=== PATIENT | male | born 1950 | race Caucasian/White ===

== ENCOUNTER 2016-11-04 19:16 | Inpatient (IN) ==
[2016-11-04] MEDS ORDERED: *HR* Morphine 2 MG/ML SYRINGE IVP ONE (19:23)
[2016-11-04] MEDS ORDERED: 0.9 % Sodium Chloride 1,000 ML IVC ONE (19:23)
[2016-11-04] MEDS ORDERED: Famotidine 20 MG/2 ML VIAL IVP ONE (19:23)
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
[2016-11-04] MEDS ORDERED: Naloxone 0.4 MG/ML INJ IVP PRN (21:13)
[2016-11-04] MEDS: 0.9 % Sodium Chloride 1,000 ML IVC SCH (22:11)
[2016-11-04] MEDS: Ondansetron 4 MG/2 ML VIAL IVP PRN (22:31)
[2016-11-04] MEDS: Chloraseptic Spray 177 ML BOTTLE MM PRN (22:32)
[2016-11-04] MEDS: *HR* Morphine 2 MG/ML SYRINGE IVP PRN (22:32)
[2016-11-05 03:39] LABS: Basophils % 0.2 %; Eosinophils # 0.1 K/mcL (0.0-0.6); Eosinophils % 1.4 %; Hematocrit 44.4 % (37.5-50.1); Hemoglobin 14.9 g/dL (12.9-16.9); Lymphocytes # 0.7 K/mcL (0.6-4.6); Lymphocytes % 13.8 %; Mean Corpuscular HGB Conc 33.6 g/dL (31.6-35.5); Mean Corpuscular Hemoglobin 28.9 pg (28.0-33.3); Mean Corpuscular Volume 86.2 fL (83.0-100.0); Mean Platelet Volume 11.2 fL (9.4-12.4); Monocytes # 0.5 K/mcL (0.0-1.3); Neutrophils # 3.7 K/mcL (1.6-8.9); Platelet Count 118 K/mcL (140-400); Red Blood Count 5.15 M/mcL (4.19-5.50); Red Cell Distribution Width 12.7 % (11.5-14.5); Segmented Neutrophils % 74.6 %
[2016-11-05] MEDS: *HR* Morphine 2 MG/ML SYRINGE IVP PRN ×4 (03:52→22:10)
[2016-11-05 03:59] LABS: BUN/Creatinine Ratio 18 (6-26); Blood Urea Nitrogen 14 mg/dL (8-26); Calcium 8.3 mg/dL (8.6-10.8); Carbon Dioxide 24 mEq/L (19-29); Chloride 112 mEq/L (98-109); Glucose 103 mg/dL (70-99); Osmolality,Calculated 295 (280-300); Potassium 4.3 mEq/L (3.5-4.5); Sodium 142 mEq/L (136-145); eGFR For African Americans > 60 (> 60); eGFR For Non-African Americans > 60 (> 60)
[2016-11-05] MEDS: Famotidine 20 MG/2 ML VIAL IVP SCH ×2 (05:09→17:59)
[2016-11-05] MEDS: Isosorbide MONOnitrate (24 HR) 60 MG TAB.ER.24H PO SCH (07:32)
[2016-11-05] MEDS: Metoprolol XL (24 HR) Succ 25 MG TAB.ER.24H PO SCH (07:33)
[2016-11-05] MEDS: lamoTRIgine 100 MG TABLET PO SCH (07:33)
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
[2016-11-05] MEDS ORDERED: Bisacodyl 10 MG RECTAL SUPPOSITORY RC ONE (11:00)
[2016-11-05] MEDS: Ondansetron 4 MG/2 ML VIAL IVP PRN (15:25)
[2016-11-05] MEDS: *HR* Heparin 5,000 UNIT/ML VIAL SQ SCH (17:59)
[2016-11-05] MEDS: 0.9 % Sodium Chloride 1,000 ML IVC SCH (19:18)
[2016-11-05] MEDS: Chloraseptic Spray 177 ML BOTTLE MM PRN (22:07)
[2016-11-06 03:58] LABS: Eosinophils # 0.1 K/mcL (0.0-0.6); Eosinophils % 1.6 %; Hematocrit 39.4 % (37.5-50.1); Immature Granulocytes % 1.4 % (0-4); Lymphocytes # 1.2 K/mcL (0.6-4.6); Lymphocytes % 23.1 %; Mean Corpuscular HGB Conc 32.7 g/dL (31.6-35.5); Mean Corpuscular Hemoglobin 28.6 pg (28.0-33.3); Mean Corpuscular Volume 87.4 fL (83.0-100.0); Mean Platelet Volume 11.4 fL (9.4-12.4); Monocytes # 0.6 K/mcL (0.0-1.3); Monocytes % 11.2 %; Neutrophils # 3.2 K/mcL (1.6-8.9); Platelet Count 109 K/mcL (140-400); Red Blood Count 4.51 M/mcL (4.19-5.50); Red Cell Distribution Width 12.8 % (11.5-14.5); Segmented Neutrophils % 62.7 %
[2016-11-06 04:00] LABS: Hemoglobin 12.9 g/dL (12.9-16.9)
[2016-11-06 04:13] LABS: Alanine Aminotransferase 26 Units/L (0-55); Albumin 2.9 g/dL (3.5-5.0); Albumin/Globulin Ratio 1.1 (1.1-2.2); Alkaline Phosphatase 66 Units/L (38-126); Aspartate Amino Transferase 28 Units/L (5-34); BUN/Creatinine Ratio 24 (6-26); Bilirubin,Total 0.8 mg/dL (0.2-1.2); Blood Urea Nitrogen 19 mg/dL (8-26); Calcium 7.9 mg/dL (8.6-10.8); Carbon Dioxide 22 mEq/L (19-29); Chloride 111 mEq/L (98-109); Globulin 2.7 g/dL (2.4-3.5); Glucose 74 mg/dL (70-99); Magnesium 1.7 mg/dL (1.6-2.6); Osmolality,Calculated 295 (280-300); Phosphorous 2.7 mg/dL (2.3-4.7); Potassium 3.6 mEq/L (3.5-4.5); Sodium 142 mEq/L (136-145); Total Protein 5.6 g/dL (6.0-8.3); eGFR For African Americans > 60 (> 60); eGFR For Non-African Americans > 60 (> 60)
[2016-11-06] MEDS: Famotidine 20 MG/2 ML VIAL IVP SCH (06:05)
[2016-11-06] MEDS: *HR* Heparin 5,000 UNIT/ML VIAL SQ SCH (06:05)
[2016-11-06] MEDS: lamoTRIgine 100 MG TABLET PO SCH (09:25)
[2016-11-06] MEDS: Isosorbide MONOnitrate (24 HR) 60 MG TAB.ER.24H PO SCH (09:25)
[2016-11-06] MEDS: Metoprolol XL (24 HR) Succ 25 MG TAB.ER.24H PO SCH (09:25)
[2016-11-06] MEDS: *HR* Morphine 2 MG/ML SYRINGE IVP PRN (09:26)
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
[2016-11-06 14:59] VITALS: BP 112/64
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
== END 2016-11-06 16:35 | disposition home or self-care (01) | DRG 390 ==
LOC: EMEROO 19:16 → 3ANU 19:16
PROVIDERS: ADMIT Internal Medicine; ATTEND Internal Medicine